=== PATIENT | male | born 1990 | race Caucasian/White ===

== ENCOUNTER 2016-11-06 22:58 | Emergency (ER) | payer MEDICAID ==
--- NOTE | 2016-11-07 01:03 | ER Document Report ---
HPI - HPI Patient complains to provider of: right ankle injury Pain Level: 5 Context: Patient is a 26-year-old male that comes emergency department for chief complaint of ankle pain, he states that he accidentally stepped into a pothole and inverted his ankle, he states that when he did so he felt a pop him a he states the pain is on the outside and front of his ankle. He denies falling or any other injuries. He denies any other locations of pain. - DERM Skin Color: Normal Past Medical History - General Information source: Patient - Social History Smoking Status: Never Smoker Frequency of alcohol use: None Drug Abuse: None Lives with: Family Family History: Reviewed & Not Pertinent Patient has suicidal ideation: No Patient has homicidal ideation: No - Past Medical History Cardiac Medical History: Reports: Hx Hypercholesterolemia Renal/ Medical History: Denies: Hx Peritoneal Dialysis Musculoskeltal Medical History: Reports Hx Musculoskeletal Deformity Psychiatric Medical History: Reports: Hx Depression Past Surgical History: Reports: Hx Orthopedic Surgery - knee and left hand, Hx Tonsillectomy - Immunizations Immunizations up to date: Yes Hx Diphtheria, Pertussis, Tetanus Vaccination: Yes - unknown date Vertical Provider Document - CONSTITUTIONAL General Appearance: WD/WN, No Apparent Distress - INFECTION CONTROL TRAVEL OUTSIDE OF THE [place] IN LAST 30 DAYS: No - HEENT HEENT: Atraumatic, Normocephalic - NECK Neck: Normal Inspection - RESPIRATORY Respiratory: Breath Sounds Normal, No Respiratory Distress O2 Sat by Pulse Oximetry: 100 - CARDIOVASCULAR Cardiovascular: Regular Rate, Regular Rhythm - GI/ABDOMEN Gastrointestinal: Abdomen Soft, Abdomen Non-Tender - BACK Back: Normal Inspection - MUSCULOSKELETAL/EXTREMETIES Musculoskeletal/Extremeties: Tender - Tender over the right lateral malleolus, no obvious swelling, normal dorsalis pedis, normal distal neurovascular exam, normal lower extremity exam otherwise Course - Re-evaluation Re-evalutation: Patient with mild tenderness over the lateral malleolus, consistent with ankle sprain, x-rays unremarkable, patient placed in ankle stirrup, given crutches, anti-inflammatory, discussed treatment and return precautions, patient states understanding and agreement. - Vital Signs Vital signs: Temp Pulse Resp BP Pulse Ox 98.3 F 84 18 133/88 H 100 11/06/16 23:39 11/06/16 23:39 11/06/16 23:39 11/06/16 23:39 11/06/16 23:39 Procedures - Immobilization right ankle Pre-Proc Neuro Vasc Exam: Normal Immobilizer type: Ankle stirrup Performed by: PCT Post-Proc Neuro Vasc Exam: Normal Alignment checked and good: Yes Discharge - Discharge Clinical Impression: Right ankle injury Qualifiers: Encounter type: initial encounter Qualified Code(s): S99.911A - Unspecified injury of right ankle, initial encounter Condition: Stable Disposition: HOME, SELF-CARE Additional Instructions: The x-ray of your ankle does not show a fracture or other problem. This appears to be a sprain, use the ankle stirrup, use the crutches, elevate your leg, apply ice to the area 3-4 times a day for 10-15 minutes. Use the crutches for 2-3 days. Take naproxen as prescribed. Return to the emergency department for any concerning symptoms. Prescriptions: Naproxen 500 mg PO BID #20 tablet
[2016-11-07] MEDS ORDERED: IBUPROFEN 600 MG TABLET PO ONE (01:43)
[2016-11-07] MEDS ORDERED: HYDROCODONE/ACETAMINOPHEN 5-325 MG TABLET PO ONE (01:47)
[2016-11-07 02:34] VITALS: BP 113/82
== END 2016-11-07 02:45 | disposition home or self-care (01) ==
LOC: ER 22:58
DX: S99.911A Unspecified injury of right ankle, initial encounter (principal); E78.00 Pure hypercholesterolemia, unspecified; X50.0XXA Overexertion from strenuous movement or load, initial encounter
CPT/HCPCS: 99283; 73610; L1902

== ENCOUNTER 2018-02-13 12:52 | Emergency (ER) | payer MEDICAID ==
[2018-02-13 12:59] VITALS: BP 126/85
[2018-02-13] MEDS ORDERED: TETRACAINE HCL 0.5% OPH SOLN 2 ML OD ONE (13:31)
[2018-02-13] MEDS ORDERED: KETOROLAC TROMETHAMINE 0.45% 4 DROP/0.4 ML DROPERETTE OD ONE (13:55)
--- NOTE | 2018-02-13 14:01 | ER Document Report ---
HPI - HPI Patient complains to provider of: right eye pain Onset: Last week Onset/Duration: Gradual Quality of pain: Achy Severity: Severe Pain Level: 5 Context: Presents emergency department with complaints of right eye pain with watery drainage since last week, increased the last few days. reports no visual changes. 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 Female at bedside doing sign language with him. He does not wear contacts. He denies trauma. Denies other symptoms such as fever vomiting diarrhea. Associated Symptoms: None Exacerbated by: Denies Relieved by: Denies Similar symptoms previously: No Recently seen / treated by doctor: No Past Medical History - General Information source: Patient - Social History Smoking Status: Unknown if Ever Smoked Cigarette use (# per day): No Family History: Reviewed & Not Pertinent Patient has suicidal ideation: No Patient has homicidal ideation: No - Past Medical History Cardiac Medical History: Reports: Hx Hypercholesterolemia Renal/ Medical History: Denies: Hx Peritoneal Dialysis Musculoskeletal Medical History: Reports Hx Musculoskeletal Deformity Psychiatric Medical History: Reports: Hx Depression Past Surgical History: Reports: Hx Orthopedic Surgery - knee and left hand, Hx Tonsillectomy - Immunizations Immunizations up to date: Yes Hx Diphtheria, Pertussis, Tetanus Vaccination: Yes - unknown date Vertical Provider Document - CONSTITUTIONAL Agree With Documented VS: Yes Exam Limitations: No Limitations General Appearance: WD/WN, No Apparent Distress - nontoxic looking, eye irritation, patient holding hand over eye - INFECTION CONTROL TRAVEL OUTSIDE OF THE [place] IN LAST 30 DAYS: No - HEENT HEENT: Atraumatic, Normocephalic, PERRLA. negative: Conjuctival Injection - NECK Neck: Normal Inspection, Supple - RESPIRATORY Respiratory: No Respiratory Distress - CARDIOVASCULAR Cardiovascular: Regular Rate - MUSCULOSKELETAL/EXTREMETIES Musculoskeletal/Extremeties: MAEW, FROM, Non-Tender - NEURO Level of Consciousness: Awake, Alert, Appropriate Motor/Sensory: No Motor Deficit - DERM Integumentary: Warm, Dry Course - Re-evaluation Re-evalutation: 02/13/18 Tetracaine applied, once tetracaine was applied patient reports relief of irritation. Corneal abrasion noted. Patient is allergic to multiple medications. Acular was ordered but since patient did not have any more pain it was canceled. Besivance was applied no allergic reaction. Patient was instructed on the importance of follow-up with ophthalmology for a closer look. Patient was also instructed to return to the ER for any further symptoms or no relief of pain. He verbalized understanding to the female at bedside via sign language. - Vital Signs Vital signs: Temp Pulse Resp BP Pulse Ox 98.7 F 69 20 126/85 H 98 02/13/18 12:57 02/13/18 12:57 02/13/18 12:57 02/13/18 12:57 02/13/18 12:57 Procedures - Eye Procedure Right Eye Irrigated w/ Saline (ccs): 20 Alcaine Drops Administered: Yes - tetracaine Fluorescein applied: Right Antibiotic Oinment/Drps Admin: Right eye Slit lamp used: No Notes: 02/13/18 17:57 dixon lamp utilized Eyes picture: 1 - abrasion, Discharge - Discharge Clinical Impression: Corneal abrasion Qualifiers: Encounter type: initial encounter Laterality: right Qualified Code(s): S05.01XA - Injury of conjunctiva and corneal abrasion without foreign body, right eye, initial encounter Condition: Stable Disposition: HOME, SELF-CARE Instructions: Antibiotic Therapy ([facility]), Corneal Abrasion ([facility]), Eyedrop Use ( [facility]) Additional Instructions: *You have been evaluated for eye irritation, corneal abrasion *Use eye drops as prescribed *Good hand washing *Follow up with an training mgr Friday *Return to ED for worsening condition, changes, needs, increased pain, unable to see, concerns Referrals: OPHTHAMOLOGY [Provider Group] - Follow up in 3-5 days
[2018-02-13] MEDS ORDERED: BESIFLOXACIN HCL 0.6% OPH SUSP 5 ML BOTTLE OD SCH (14:15)
== END 2018-02-13 14:23 | disposition home or self-care (01) ==
LOC: ER 12:52
DX: S05.01XA Injury of conjunctiva and corneal abrasion without foreign body, right eye, initial encounter (principal); X58.XXXA Exposure to other specified factors, initial encounter; E78.00 Pure hypercholesterolemia, unspecified
CPT/HCPCS: 99283; J3490